=== PATIENT | male | born 1990 | race Caucasian/White ===

== ENCOUNTER 2020-06-19 22:44 | Emergency (ER) | payer OTHER, SELFPAY ==
[2020-06-19 22:46] VITALS: BP 170/109; PULSE 117; RESP 17; TEMP 35.7; O2SAT 95; BMI 42.5
[2020-06-19 23:41] VITALS: BP 153/96; PULSE 101; RESP 15; O2SAT 97
[2020-06-19 23:42] VITALS: BP 153/96; PULSE 100; RESP 15; TEMP 36.6; O2SAT 97
[2020-06-19 23:42] LABS: Absolute Lymphocyte Count 0.51 X10^3/uL (0.83-4.51); Absolute Neutrophil Count 14.2 X10^3/uL (2.0-7.7); Basophil# 0.03 X10^3/uL; Basophil% 0.2 % (0-1); Eosinophil# 0.02 X10^3/uL; Eosinophils% 0.1 % (0-5); Hematocrit 47.1 % (40-54); Lymphocyte # 0.51 X10^3/ul (4.0); Lymphocyte % 3.3 % (19-41); Mean Corpuscular Hgb 28.7 pg (27.0-32.0); Mean Corpuscular Volume 84.6 fL (80-94); Mean Platelet Vol. 10.6 fl (6.2-12.0); Monocyte# 0.74 X10^3/uL; Monocyte% 4.8 % (0-10); NRBC Flagged by Analyzer 0 % (0-5); Neutrophil % 91.3 % (47-70); POSITIVE COUNT YES; POSITIVE DIFFERENTIAL YES; Platelet Count 222 K/mm3 (150-450); RBC Distribution Width CV 12.7 % (11.6-14.6); RBC Distribution Width SD 39.2 fl (35.1-43.9); Red Blood Count 5.57 M/mm3 (4.6-6.2); White Blood Count 15.6 K/mm3 (4.4-11.0)
[2020-06-19 23:44] LABS: Differential Indicated SCAN CRITERIA MET
[2020-06-19] MEDS: Ondansetron 4 MG/2 ML Vial IV (23:52)
[2020-06-19] MEDS: 0.9% Normal Saline 1,000 ML 999 ML IV (23:52)
[2020-06-19 23:54] LABS: ALB/GLOB Ratio 0.9 RATIO (0.9-2.4); AST(SGOT) 53 U/L (15-37); Alanine Aminotransfer ALT/SGPT 48 U/L (16-61); Albumin, Serum 3.9 g/dL (3.2-5.0); Alkaline Phosphatase 102 U/L (45-117); Anion Gap 8 (5-15); BUN 17 mg/dL (7-18); BUN/Creat Ratio 14.3 RATIO (10-20); Calcium,Total 8.4 mg/dL (8.5-10.1); Chloride 108 mmol/L (98-107); Creatinine, Serum 1.19 mg/dL (0.70-1.30); EST Glomerular Filtration Rate 77 mL/min (>60); Est Glom Filt Rate - Afr Amer 93 mL/min (>60); Estimated Creatinine Clearance 101.44 ml/min; Globulin 4.2 g/dL (2.2-4.2); Glucose 117 mg/dL (74-106); Lipase 114 U/L (73-393); Potassium 4.2 mmol/L (3.5-5.1); Protein, Total 8.1 g/dL (6.4-8.2); Sodium Level 139 mmol/L (136-145)
--- NOTE | 2020-06-20 01:09 | ED.VIS.GI ---
History of Present Illness Chief Complaint: Nausea/Vomiting/Diarrhea Informant: Patient - Abdominal Pain/Flank Pain Onset: Today Context: Sudden Onset Timing: Continuous Narrative: Patient is a 29-year-old male with no significant past medical history presenting with approximately 8 hours of vomiting and diarrhea. He denies any blood in his vomit or stool. He denies any associated abdominal pain but states his abdomen is sore from the vomiting. He does not know any times he is vomited and he states he is at least 16 episodes of diarrhea. He denies any sick contacts. He does not think he is eaten any food that could cause food poisoning but is not entirely sure. He was concerned he was trying to get dehydrated. Denies any other complaints at this time. Denies associated fever, chills or flulike symptoms. Past Medical History - Allergies and Home Meds Allergies/Adverse Reactions: Allergies No Known Allergies Allergy (Verified 06/19/20 22:47) Primary Care Physician: Care Physician,No Primary [Primary Care Provider] - Past Medical History: None Surgical History: no surgical history Lives: Spouse/ Significant Other Smoking Status: Former smoker Review of Systems General: Denies: Chills, Fever, Sweats Eyes: Denies: Visual changes - bilaterally, Diplopia ENT: Denies: Rhinorrhea, Sore throat Cardiovascular: Denies: Chest pain, Palpitations Respiratory: Denies: Dyspnea, Cough, Dyspnea on exertion Gastrointestinal: Reports: Nausea, Vomiting, Diarrhea. Denies: Abdominal pain, Melena, Hematochezia Genitourinary: Denies: Dysuria, Hematuria, Frequency Musculoskeletal: Denies: Back pain, Extremity Pain Skin: Denies: Rash, Wounds Neurological: Denies: Headache, Weakness, Numbness Physical Exam Vital Signs/Narrative: Vital Signs Temp Pulse Resp BP Pulse Ox 06/19/20 23:42 97.9 F 100 15 153/96 H 97 06/19/20 23:41 101 H 15 153/96 H 97 06/19/20 22:46 96.3 F L 117 H 17 170/109 H 95 Inital Vital Signs reviewed: Yes General: Well nourished, Well developed, No Acute Distress Head: Normocephalic, Atraumatic Eyes: Perrl, EOMI ENT: No rhinorrhea, Dry mucous membranes Neck: Supple, Nontender Cardiovascular: Regular rhythm, No murmurs, Tachycardia Respiratory: No distress, CTA bilaterally, Chest nontender Abdomen: Soft, Nontender, Nondistended, Normal bowel sounds. Negative for: Guarding, Rebound tenderness Back: Nontender, Normal Inspection Extremities: Nontender, No edema Skin: Normal color, No rash Neurological: Alert, Oriented x3, Cranial nerves II-XII grossly intact, Normal Strength, Normal Sensation Psychological: Normal affect, Normal Mood Diagnostic/Tx/Re-eval Laboratory Data 06/19/20 06/19/20 23:27 23:27 WBC 15.6 H RBC 5.57 Hgb 16.0 Hct 47.1 MCV 84.6 MCH 28.7 MCHC 34.0 RDW Std Deviation 39.2 RDW Coeff of Shad 12.7 Plt Count 222 MPV 10.6 Immature Gran % (Auto) 0.300 Neut % (Auto) 91.3 H Lymph % (Auto) 3.3 L Henry % (Auto) 4.8 Eos % (Auto) 0.1 Baso % (Auto) 0.2 Absolute Neuts (auto) 14.2 H Absolute Lymphs (auto) 0.51 L Nucleated RBC % 0 Sodium 139 Potassium 4.2 Chloride 108 H Carbon Dioxide 23.0 Anion Gap 8 BUN 17 Creatinine 1.19 Estim Creat Clear Calc 101.44 Est GFR (MDRD) Af Amer 93 Est GFR (MDRD) Non-Af 77 BUN/Creatinine Ratio 14.3 Glucose 117 H Calcium 8.4 L Total Bilirubin 0.80 AST 53 H ALT 48 Alkaline Phosphatase 102 Total Protein 8.1 Albumin 3.9 Globulin 4.2 Albumin/Globulin Ratio 0.9 Lipase 114 - Medical Decision Making Patient evaluated for 1 day of vomiting and diarrhea. Presentation is consistent with a mild dehydration and likely gastroenteritis. His abdomen is soft and nontender. He is afebrile. He is mildly tachycardic. Patient is given IV fluids as well as IV Zofran for symptom control. I did check blood work which shows a leukocytosis. This could be reactive from his vomiting. His abdomen is soft and nontender I do not think imaging is indicated at this time. Patient does have improvement and is given fluids orally in the emergency room which he tolerates. He does not have any episodes of vomiting or diarrhea while in the emergency room. He will be discharged home with a course of Zofran instructed to take [id number] Pepto-Bismol as needed for diarrhea. He is encouraged to drink plenty fluids over the next 24 to 48 hours. Patient is counseled on signs and symptoms requiring return to the emergency room. Patient verbalizes agreement and understand this plan. Patient discharged home in stable and improved condition. ED Disposition - Plan for ED Patient: Disposition: Home or Assisted Living Diagnosis: Vomiting and diarrhea Instructions: ED Vomiting and Diarrhea ... Prescriptions: Ondansetron [Zofran Odt] 4 mg PO Q8H PRN PRN #10 tab PRN Reason: Nausea Transmission Status: Pending to [id number] Referrals: Marlo Lopez MD [STAFF PHYSICIAN] - Additional Instructions: Drink plenty of fluids over the next 1 to 2 days. Take [id number] Pepto-Bismol as needed for diarrhea and abdominal discomfort. Return the emergency room with any worsening symptoms.
[2020-06-20 01:27] VITALS: BP 110/80; PULSE 81; RESP 16
== END 2020-06-20 01:28 | disposition home or self-care (01) ==
PROVIDERS: Emergency Provider Emergency Medicine
DX: R11.2 Nausea with vomiting, unspecified (principal); R19.7 Diarrhea, unspecified; E86.0 Dehydration; R10.9 Unspecified abdominal pain; Z79.899 Other long term (current) drug therapy; Z87.891 Personal history of nicotine dependence
CPT/HCPCS: 80053; 83690; 85025; 96361; 96374; 99284; J7030; A4216; J2405

== ENCOUNTER 2023-08-23 12:09 | Emergency (ER) | payer OTHER, SELFPAY ==
[2023-08-23] VITALS (8 sets, daily range): BP systolic 156–195; BP diastolic 63–112; PULSE 71–106; RESP 14–34; TEMP 35.8–37; O2SAT 92–99; BMI 45.6
--- NOTE | 2023-08-23 12:12 | RAD_ITS ---
STUDY: X-RAY - RIGHT TIBIA AND FIBULA REASON FOR EXAM: Male, 33 years old. trauma TECHNIQUE: 4 view(s) of the tibia and fibula were obtained. COMPARISON: None. FINDINGS: Acute oblique fractures are present across the full width of the distal one third tibia and fibular shafts with displacement of the bony fragments laterally from the proximal fragments by a full shaft diameters. A small bony fragment is present on the medial side of the tibial fracture site adjacent to the open soft tissue laceration wound. The remaining aspects of the tibia and fibula are normal. The knee joint articulation is normal. RAD/Tibia & Fibula 2 Views IMPRESSION: 1. Acute displaced oblique fractures of the distal one third tibial and fibular shafts Electronically Signed: Roque Johnson MD at 13:59 EDT ,
--- NOTE | 2023-08-23 12:12 | RAD_ITS ---
STUDY: X-RAY - RIGHT FOOT CLINICAL: Male, 33 years old. trauma TECHNIQUE: 3 view(s) of the foot. COMPARISON: None. FINDINGS: Splint/casting material overlies the bony structures slightly limiting evaluation. There is no demonstrated obvious fracture or displaced bony fragment. Normal talus, calcaneus, and tarsal bones. Normal visualized subtalar, talonavicular, calcaneocuboid, tarsal and tarsometatarsal articulations. Normal metatarsi. Normal metatarsophalangeal joint of the great toe. Normal tibial and fibular sesamoid bones. Normal interphalangeal joint of the great toe. Normal phalanges of the great toe. Normal second through fifth metatarsophalangeal joints. Normal interphalangeal joints and phalanges of the lesser toes. RAD/Foot min 3 Views IMPRESSION: 1. Splint/casting material overlies the bony structures slightly limiting evaluation. There is no demonstrated obvious fracture or displaced bony fragment. Electronically Signed: Roque Johnson MD at 13:37 EDT ,
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
[2023-08-23] MEDS: HYDROmorphone 1 MG/ML Syringe IV ×3 (12:20→14:40)
[2023-08-23] MEDS: Ondansetron 4 MG/2 ML Vial IV (12:20)
[2023-08-23] MEDS: Etomidate 20 MG/10 ML Vial IV (12:31)
[2023-08-23] MEDS: Etomidate 20 MG/10 ML Vial 10 MG IV ×2 (12:34→12:36)
[2023-08-23] MEDS: Etomidate 20 MG/10 ML Vial 5 MG IV (12:39)
[2023-08-23 12:47] LABS: Absolute Lymphocyte Count 3.43 X10^3/uL (0.83-4.51); Absolute Neutrophil Count 10.5 X10^3/uL (2.0-7.7); Basophil# 0.08 X10^3/uL; Basophil% 0.5 % (0-1); Eosinophil# 0.06 X10^3/uL; Eosinophils% 0.4 % (0-5); Hematocrit 44.4 % (40-54); Hemoglobin 14.9 g/dL (13.0-16.5); Lymphocyte # 3.43 X10^3/ul (0.83-4.51); Mean Corp Hgb Conc 33.6 g/dL (32-36); Mean Corpuscular Hgb 28.7 pg (27.0-32.0); Mean Corpuscular Volume 85.4 fL (80-94); Mean Platelet Vol. 10.9 fl (6.2-12.0); Monocyte# 1.03 X10^3/uL; Monocyte% 6.6 % (0-10); NRBC Flagged by Analyzer 0 % (0-5); Neutrophil # 10.53 X10^3/uL (2.7-7.7); Neutrophil % 67.4 % (47-70); Platelet Count 324 K/mm3 (150-450); RBC Distribution Width CV 12.4 % (11.6-14.6); RBC Distribution Width SD 38.5 fl (35.1-43.9); White Blood Count 15.6 K/mm3 (4.4-11.0)
--- NOTE | 2023-08-23 12:50 | RAD_ITS ---
STUDY: X-RAY CHEST REASON FOR EXAM: Male, 33 years old. trauma TECHNIQUE: Single AP portable view of the chest. COMPARISON: None. FINDINGS: The lungs are clear and expanded. There is no demonstrated pleural abnormality. Normal size heart. Normal mediastinum and marilee. Normal visualized pulmonary arteries. Normal visualized aortic arch and descending thoracic aorta. Normal visualized thoracic spine. Normal visualized ribs, clavicles, and shoulders. There is no demonstrated abnormality of the visualized soft tissue structures of the upper abdomen. RAD/Chest 1 View (Portable) IMPRESSION: Normal x-ray examination of the chest. Electronically Signed: Roque Johnson MD at 13:37 EDT ,
[2023-08-23 13:08] LABS: ALB/GLOB Ratio 1.2 RATIO (0.9-2.4); AST(SGOT) 54 U/L (15-37); Alanine Aminotransfer ALT/SGPT 40 U/L (16-61); Albumin, Serum 3.8 g/dL (3.2-5.0); Alkaline Phosphatase 85 U/L (45-117); Anion Gap 7 (5-15); BUN 13 mg/dL (7-18); BUN/Creat Ratio 14.4 RATIO (10-20); CPK Total, Creatine Kinase 228 U/L (39-308); Calcium,Total 8.2 mg/dL (8.5-10.1); Chloride 111 mmol/L (98-107); EST Glomerular Filtration Rate 104 mL/min (>60); Est Glom Filt Rate - Afr Amer 126 mL/min (>60); Estimated Creatinine Clearance 179.47 ml/min; Globulin 3.3 g/dL (2.2-4.2); Glucose 101 mg/dL (74-106); Potassium 2.9 mmol/L (3.5-5.1); Protein, Total 7.1 g/dL (6.4-8.2); Sodium Level 142 mmol/L (136-145)
--- NOTE | 2023-08-23 13:10 | ED.RN ---
FACE SHEET TO [facility] PER DR. RENTERIA REQUEST.
[2023-08-23 13:11] LABS: Prothrombin Time (Protime)PT. 13.5 SECONDS (11.7-14.9)
[2023-08-23 13:12] LABS: Partial Thromboplast Time 26.2 Seconds (24.1-36.2)
[2023-08-23] MEDS: Cefazolin 2 GM in 0.9% Normal Saline (100mL Bag) 100 ML IV (13:28)
[2023-08-23] MEDS: Piperacil/Tazobactam 4.5 GM in 0.9% Normal Saline (100mL MB+) 100 ML IV (13:58)
--- NOTE | 2023-08-23 15:04 | ED.RN ---
report given to LIBRADO Baez at [facility]
== END 2023-08-23 14:46 | disposition short-term general hospital (02) ==
PROVIDERS: Emergency Provider Emergency Medicine; Visit Provider Emergency Medicine
DX: S82.231B Displaced oblique fracture of shaft of right tibia, initial encounter for open fracture type I or II (principal); S82.431B Displaced oblique fracture of shaft of right fibula, initial encounter for open fracture type I or II; W31.9XXA Contact with unspecified machinery, initial encounter; Y99.0 Civilian activity done for income or pay; E66.9 Obesity, unspecified; F17.210 Nicotine dependence, cigarettes, uncomplicated
CPT/HCPCS: 27752; 71045; 73590; 73630; 80053; 82550; 85025; 85610; 85730; 96365; 96367; 96375; 96376; 99152; 99285; A4216; J2405

== ENCOUNTER 2024-01-06 15:00 | Outpatient (RCR) | payer OTHER, SELFPAY ==
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
--- NOTE | 2023-11-27 16:15 | HP.PTREVAL ---
Re-Evaluation Intro: Dr. Den Duncan MD, It has been my pleasure to treat LALITA GARCIA over the last 9 visits for 08/23/23 Right Intermedullary Nail and irrigation and Debridement of Traumat. Please see the progress note below for an update on the physical therapy plan of care! 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 Pt. is still only to be on his leg 20' at a time. He is still using a cane. He reports being unsteady without use of cane. Objective Objective/Function: ROM: Pt. has good ROM of his R knee, 0-0-132deg. R ankle: DF 5deg (tightness), PF 48deg, INV 10deg increase NW at medial tibia, EVR 16deg NE. MMT: RLE: ankle DF 34#, PF 54#; knee: ext 25#, flexion 20#; hip: flexion 24#, abd 20#. LLE: ankle: DF 39#, PF 56#; knee: ext 40#, flexion 41#; hip: flexion 27#, abd 25#. GAIT: Pt. ambulates with SPC with moderate off loading RLE. Pt. has early heel off on R side and increased antalgic pattern during R stance phase. STAIRS: Pt. is able to complete with 2 HR with reciprocal pattern, but has increased pain during R stance phase. With descending he has difficulty with loading RLE and early heel off (most likely due to decreased DF). SLS on RLE: 8sec mild increase NW. Plan Plan Plan: Extending PT x2 per week for 4 more weeks. Focus on calf stretching, progressive non painful loading of RLE. Add in stair negotiation with good control as well. Progress balance in tolerable stances. Balance/Gait/Functional tests Balance/Special Test Scores Lower Extremity Functional Score: 40 Goals Goals Goal 1:: Patient will be I with HEP and progression Goal Time Frame: 4-6 Weeks Goal Progress: Progressing Goal 2:: Patient will ambulate with LRD and a normalized gait pattern Goal Time Frame: 4-6 Weeks Goal Progress: Progressing Goal 3:: Patient will SLS 15 seconds without loss of balance Goal Time Frame: 4-6 Weeks Goal Progress: Progressing Goal 4:: Patient will return to all normalized activities Goal Time Frame: 4-6 Weeks Goal Progress: Progressing Goal 5:: Patient will report 80% improvement Goal Time Frame: 4-6 Weeks Goal Progress: Progressing Anticipated Interventions Anticipated Interventions Patient/Client Instruction: Educate patient on: Benefits of Fitness Program Therapeutic Exercise to Include: Strength training, Endurance training, Balance training, Coordination, Agility training, Body mechanics, Postural training, Flexibilty training, Gait and locomotor training, Neuromotor development, Passive ROM, Active ROM, Dynamic Lumbar Stabilization and Scapular Strength/Stabilization For the Purpose of:: To improve muscle performance and motor function TENS: Yes Cryotherapy (ice pack, ice massage): Yes Thermo therapy (hot pack): Yes Ultrasound (thermal/non thermal): No Re-Evaluation Ending Re-evaluation ending: Please do not hesitate to contact me at [phone] by phone or if you have questions or concerns regarding this new plan of care! Sincerely, Case Haq DPT
== END 2024-01-06 19:00 | disposition home or self-care (01) ==
LOC: PT 15:00
PROVIDERS: PCP Family Medicine; Referring Provider Orthopaedic Surgery; Visit Provider Orthopaedic Surgery
DX: S82.409 Unspecified fracture of shaft of unspecified fibula (principal)
CPT/HCPCS: 97110; 97162; 97530